=== PATIENT | male | born 1995 | race Caucasian/White ===

== ENCOUNTER 2017-08-09 19:59 | Emergency (ER) | payer BC, SELFPAY ==
[2017-08-09] MEDS ORDERED: Ondansetron HCl/PF 4 MG/2 ML Vial ONE (20:09)
[2017-08-09] MEDS ORDERED: Promethazine HCl 25 MG/ML VIAL ONE (20:29)
[2017-08-09 20:38] LABS: #Basophils 0.1 thou/uL (0.0-0.2); #Eosinphils 0.1 thou/uL (0.0-0.7); #Lymphocytes 5.5 thou/uL (1.20-3.40); #Neutrophils 7.8 thou/uL (1.40-6.50); %Basophils 0.5 % (0.0-1.0); %Eosinophils 0.7 % (0.0-10.0); %Monocytes 6.6 % (0.0-4.0); Mean Platelet Volume 9.3 fL (7.4-10.4); Red Blood Cell (RBC) Count 5.92 mill/uL (4.00-5.20); White Blood Cell (WBC) Count 14.3 thou/uL (4.8-10.8)
[2017-08-09 20:57] LABS: ALT (SGPT) 18 U/L (8-55); AST (SGOT) 22 U/L (10-45); Alkaline Phosphatase 63 U/L (Less than 750); Anion Gap 27 mmol/L (10-20); BUN (Urea Nitrogen) 19 mg/dL (8.4-21.0); Bilirubin, Total 0.4 mg/dL (0.2-1.2); Calc. Creatinine Clearance 0 mL/min (70-130); Calcium 9.5 mg/dL (7.8-10.44); Carbon Dioxide 11 mmol/L (22-29); Chloride 102 mmol/L (98-107); Estimated GFR-MDRD 72; Globulin 2.9 g/dL (2.4-3.5); Protein, Total 7.7 g/dL (6.0-8.3)
[2017-08-09 21:26] LABS: Oxyhemoglobin 93.8 % (94.0-97.0); Sodium 137 mmol/L (135-148)
[2017-08-09 21:28] LABS: Mode ROOM AIR; Modified Allen's Test POSITIVE; Vent NO
--- NOTE | 2017-08-09 21:32 | CT ---
CT HEAD WITHOUT IV CONTRAST 08/09/17 HISTORY: Witnessed seizure. Postictal upon arrival by EMS. Altered mental status. Sinus tachycardia. FINDINGS: There is no evidence of hemorrhage, acute infarction, mass effect or midline shift. Ventricular syst em is normal in size, shape and position. The visualized paranasal sinuses and mastoid air cells are clear. the calvarial structures are intact. IMPRESSION: No acute intracranial abnormalities demonstrated. POS: [facility]
[2017-08-09 21:59] LABS: Bilirubin Negative (Negative); Blood, Urine Trace (Negative); Glucose, Urine (Dipstick) Negative (Negative); Ketone, Urine Negative (Negative); Nitrite Negative (Negative); Protein, Urine (Dipstick) 30 mg/dL (Neg-Trace); Urobilinogen 0.2 mg/dL (0.2-1.0)
[2017-08-09 22:00] LABS: Bacteria/HPF None Seen HPF (None Seen); Hyaline Casts/LPF 0-3 HYALINE CAST LPF (0-3 Hyaline); RBC/HPF None Seen HPF (0-3); Squamous Epithelial None Seen HPF (0-3); WBC/HPF 0-3 HPF (0-3)
[2017-08-09 22:08] LABS: Amphetamine Detected (NotDetected); Methadone Not Detected (NotDetected); Methamphetamine Not Detected (NotDetected)
== END 2017-08-09 22:37 | disposition home or self-care (01) ==
LOC: ERS 19:59
DX: R56.9 Unspecified convulsions (principal)
CPT/HCPCS: 36415; 70450; 80053; 80306; 81003; 81015; 82550; 82805; 84146; 85025; 96361; 96365; 96375; J2405; J2550

== ENCOUNTER 2017-10-13 08:15 | Outpatient (CLI) | payer BC ==
--- NOTE | 2017-11-14 14:31 | EEG ---
Referring Physician: DR. JAH ALMONTE EEG # [id number] TEST TYPE: ROUTINE OUTPATIENT DATE EEG DONE 10/13/17 REASON FOR EEG: CHRONIC SEIZURE EEG DESCRIPTION: This is a 21 channel digital EEG recording. Electrodes are placed using the international 10-20 electrode placement system. The background rhythm is predominately 9-10 hertz, medium voltage alpha rhythm. HYPERVENTILATION: Showed no effect. PHOTIC STIMULATION: Showed no effect. There are no epileptiform discharges, sharp transients or asymmetry noted. EKG LEAD: Shows 60 beats per minute, regular rhythm. IMPRESSION: THIS IS A NORMAL EEG. Underbaster: [email or web address] Mobile Developer: [email or web address]
== END 2017-10-13 08:16 | disposition home or self-care (01) ==
LOC: MRI 08:15 → EEG 08:16
PROVIDERS: ATTEND Psychiatry & Neurology Neurology
DX: G40.409 Other generalized epilepsy and epileptic syndromes, not intractable, without status epilepticus (principal)
CPT/HCPCS: 95816